=== PATIENT | female | born 1990 | race African-American/Black ===

== ENCOUNTER 2019-04-20 23:52 | Emergency (ER) | payer SELFPAY ==
[~2019-04-20] VITALS: Ht 162.6 cm; Wt 53.0 kg
[2019-04-21] MEDS ORDERED: DIPHENHYDRAMINE 50MG CAPSULE PO ONE (01:00)
[2019-04-21] MEDS ORDERED: CEPHALEXIN 250MG CAPSULE PO ONE (01:15)
[2019-04-21 01:27] VITALS: BP 142/81
== END 2019-04-21 01:28 | disposition home or self-care (01) ==
LOC: ER 23:52
DX: S90.562A Insect bite (nonvenomous), left ankle, initial encounter (principal); L03.116 Cellulitis of left lower limb; W57.XXXA Bitten or stung by nonvenomous insect and other nonvenomous arthropods, initial encounter; Y93.89 Activity, other specified; Y92.89 Other specified places as the place of occurrence of the external cause
CPT/HCPCS: 99283; Q0163

== ENCOUNTER 2021-06-14 07:49 | Emergency (ER) | payer MEDICAID ==
[~2021-06-14] VITALS: Ht 167.6 cm; Wt 54.0 kg
[2021-06-14] MEDS ORDERED: LIDOCAINE HCL 1% 20ML VIAL (Pyxis) INJ INFIL ONE (08:15)
[2021-06-14] MEDS ORDERED: CEFTRIAXONE SODIUM 500 MG/VIAL IM ONE (08:15)
[2021-06-14] MEDS ORDERED: AMLODIPINE 5MG TABLET PO ONE (08:30)
[2021-06-14] MEDS ORDERED: DOXY100C5 MT (08:41)
[2021-06-14] MEDS ORDERED: AMLO5TAB4 MT (08:41)
[2021-06-14 08:45] VITALS: BP 168/130
[2021-06-17 04:07] LABS: NEISSERIA GONORRHOEAE NAA Negative (Negative)
== END 2021-06-14 08:47 | disposition home or self-care (01) ==
LOC: ER 07:49
DX: T19.2XXA Foreign body in vulva and vagina, initial encounter (principal); I10 Essential (primary) hypertension; Z11.3 Encounter for screening for infections with a predominantly sexual mode of transmission; X58.XXXA Exposure to other specified factors, initial encounter; Y93.89 Activity, other specified; Y92.89 Other specified places as the place of occurrence of the external cause; Y99.8 Other external cause status
CPT/HCPCS: 81025; 82962; 87491; 87591; 96372; 99284; J0696; J3490; Z7610

== ENCOUNTER 2021-06-26 17:56 | Emergency (ER) | payer MEDICAID ==
[~2021-06-26] VITALS: Ht 167.6 cm; Wt 56.0 kg
[~2021-06-26 17:56] MED LIST: AMLO5TAB4 MT; DOXY100C5 MT
[2021-06-26 17:58] VITALS: BP 151/100
== END 2021-06-26 19:04 | disposition home or self-care (01) ==
LOC: ER 17:56
DX: S09.8XXA Other specified injuries of head, initial encounter (principal); W50.1XXA Accidental kick by another person, initial encounter; Y93.89 Activity, other specified; Y92.89 Other specified places as the place of occurrence of the external cause; Y99.8 Other external cause status; I10 Essential (primary) hypertension; Z87.440 Personal history of urinary (tract) infections
CPT/HCPCS: 99281

== ENCOUNTER 2021-08-25 08:20 | Emergency (ER) | payer MEDICAID ==
[~2021-08-25] VITALS: Ht 157.5 cm; Wt 60.0 kg
[2021-08-25 08:25] VITALS: BP 187/121
== END 2021-08-25 08:59 | disposition home or self-care (01) ==
LOC: ER 08:20
DX: H00.014 Hordeolum externum left upper eyelid (principal); I10 Essential (primary) hypertension
CPT/HCPCS: 99281

== ENCOUNTER 2021-10-02 18:08 | Emergency (ER) | payer MEDICAID ==
[~2021-10-02] VITALS: Ht 165.1 cm; Wt 140.0 kg
[2021-10-02] MEDS ORDERED: BACITRACIN ZINC OINT UDPKT TOP ONE (18:15)
[2021-10-02] MEDS ORDERED: LIDOCAINE HCL/EPINEPHRINE 1%-EPI 1:100,000 20 ML VIAL INFIL ONE (18:15)
[2021-10-02 20:25] VITALS: BP 123/78
== END 2021-10-02 20:33 | disposition home or self-care (01) ==
LOC: ER 18:08
DX: S01.81XA Laceration without foreign body of other part of head, initial encounter (principal); W22.8XXA Striking against or struck by other objects, initial encounter; Y93.89 Activity, other specified; Y92.89 Other specified places as the place of occurrence of the external cause; Y99.8 Other external cause status; I10 Essential (primary) hypertension; Z87.440 Personal history of urinary (tract) infections
CPT/HCPCS: 12013; 70450; 99284; J3490

== ENCOUNTER 2021-10-18 10:52 | Emergency (ER) | payer MEDICAID ==
[~2021-10-18] VITALS: Ht 170.2 cm; Wt 53.0 kg
[2021-10-18 10:58] VITALS: BP 177/117
== END 2021-10-18 13:11 | disposition home or self-care (01) ==
LOC: ER 10:52
DX: S01.81XD Laceration without foreign body of other part of head, subsequent encounter (principal); Z48.02 Encounter for removal of sutures; X58.XXXD Exposure to other specified factors, subsequent encounter
CPT/HCPCS: 99281; Z7610

== ENCOUNTER 2024-02-25 00:17 | Emergency (ER) | payer MEDICAID ==
[~2024-02-25] VITALS: Ht 167.6 cm; Wt 60.0 kg
[2024-02-25 00:23] VITALS: O2SAT 99
[2024-02-25 00:47] VITALS: BP 170/100; PULSE 90; RESP 16; TEMP 98; O2SAT 98
== END 2024-02-25 02:55 | disposition left against medical advice (07) ==
LOC: ER 00:17
DX: M79.605 Pain in left leg (principal); Z53.21 Procedure and treatment not carried out due to patient leaving prior to being seen by health care provider